=== PATIENT | male | born 1955 | race Caucasian/White ===

== ENCOUNTER 2016-09-06 05:18 | Observation (INO) | payer OTHER ==
[2016-09-06] VITALS (7 sets, daily range): BP systolic 115–168; BP diastolic 53–83; PULSE 71–82; RESP 16–20; TEMP 98–98.1; O2SAT 92–99
[~2016-09-06] VITALS: Ht 175.3 cm; Wt 127.0 kg
[2016-09-06] MEDS ORDERED: SODIUM CHLORIDE 0.9% FLUSH 5 ML FLUSH IVF PRN (06:00)
[2016-09-06] MEDS ORDERED: NITROGLYCERIN 0.4 MG SL 25 TABS/BTL SL ONE (06:00)
[2016-09-06] MEDS ORDERED: ASPIRIN 81 MG CHEW TAB CHEW ONE (06:15)
[2016-09-06] MEDS ORDERED: LISI-519 PO ×2 (06:31→14:59)
[2016-09-06] MEDS ORDERED: HYDR-4107 PO (06:31)
--- NOTE | 2016-09-06 06:32 | PD ---
HPI Chief Complaint: Numbness/Tingling Time Seen by Provider: 06:00 Travel History International Travel<30 days: No Contact w/Intl Traveler<30days: No Traveled to known affect area: No History of Present Illness HPI 61-year-old white male with a history of hypertension presents emergency department for evaluation of indigestion and tingling sensation in his left arm after an exertional episode this evening. The patient states that he knows that he is overweight and has low exercise tolerance. He states that he was out walking his dog this evening sometime around 10:30 PM. He states that they were walking quite vigorously when he started developing indigestion sensation in his chest. He states that he felt as if he needed to burp. He also states that he had tingling sensation in his left upper arm down into his lower arm. He states that he had no associated nausea or vomiting but he did feel short of breath with activity. The shortness of breath improved with rest. He states that the indigestion sensation and feeling of needing to burp also slowly improved but he still had remaining tingling and altered sensation in his left upper arm. He states that he just didn't feel right. Over last several hours the sensation has started to improve but he states that he just doesn't feel right in his left upper arm and points to his biceps region. He states that he still does occasionally get some feeling of indigestion and wanting to burp. He denies any history of heart disease in the past. He denies any stress tests or cardiac catheterization in the past. The patient denies any recent illness or injuries. He states that he did take a baby aspirin as soon as he got home because he was concerned that this could be a cardiac event. He presents for evaluation. The patient states that the symptoms were moderate in intensity but mild now. He has had some improvement of symptoms with rest. These are exacerbated by activity. Patient denies diabetes and hypercholesterolemia. PFSH Past Medical History Narrative Medical Hypertension Tetanus Vaccination: Unknown Past Surgical History Narrative Surgical Varicose vein stripping Social History Alcohol Use: Yes Tobacco Use: Yes Allergies-Medications (Allergen,Severity, Reaction): Coded Allergies: Penicillin (Verified Allergy, Unknown, 09/06/16) Sulfa (Verified Allergy, Unknown, 09/06/16) Review of Systems Except as stated in HPI: all other systems reviewed are Neg General / Constitutional: No: Fever, Chills Eyes: No: Diploplia, Blurred Vision HENT: No: Headaches, Vertigo Cardiovascular: Positive: Chest Pain or Discomfort, Tachycardia, No: Palpitations Respiratory: Positive: Shortness of Breath, Other (dyspnea with exertion), No : Cough, Wheezing Gastrointestinal: Positive: Indigestion, No: Nausea, Vomiting Genitourinary: No: Dysuria, Hematuria Musculoskeletal: No: Myalgias, Arthralgias Skin: No Rash, No Itching Neurologic: Positive: Paresthesia (left arm), No: Weakness, Syncope Psychiatric: No: Anxiety, Depression Endocrine: No: Heat Intolerance, Cold Intolerance Hematologic/Lymphatic: No: Easy Bruising Physical Exam Narrative GENERAL: Well-developed morbidly obese white male in no acute distress SKIN: Warm and dry. HEAD: Atraumatic. Normocephalic. EYES: Pupils equal and round. No scleral icterus. No injection or drainage. ENT: No nasal bleeding or discharge. Mucous membranes pink and moist. NECK: Trachea midline. No JVD. CARDIOVASCULAR: Regular rate and rhythm. 1-2 murmur appreciated right aortic area. RESPIRATORY: No accessory muscle use. Clear to auscultation. Breath sounds equal bilaterally. GASTROINTESTINAL: Abdomen soft, non-tender, nondistended. Hepatic and splenic margins not palpable. MUSCULOSKELETAL: No obvious deformities. No clubbing. No cyanosis. No edema. Venous stasis changes NEUROLOGICAL: Awake and alert. No obvious cranial nerve deficits. Motor grossly within normal limits. Normal speech. PSYCHIATRIC: Appropriate mood and affect; insight and judgment normal. Data Data Last Documented VS Vital Signs Date Time Temp Pulse Resp B/P Pulse Ox O2 Delivery O2 Flow Rate FiO2 09/06/16 05:26 98.0 71 16 149/77 96 Orders Electrocardiogram (09/06/16 05:53) Basic Metabolic Panel (Bmp) (09/06/16 05:53) Ckmb (Isoenzyme) Profile (09/06/16 05:53) Complete Blood Count With Diff (09/06/16 05:53) Magnesium (Mg) (09/06/16 05:53) Prothrombin Time / Inr (Pt) (09/06/16 05:53) Act Partial Throm Time (Ptt) (09/06/16 05:53) Troponin I (09/06/16 05:53) Chest, Single Ap (09/06/16 05:53) Ecg Monitoring (09/06/16 05:53) Bilateral Bp Monitoring (09/06/16 05:53) Iv Access Insert/Monitor (09/06/16 05:53) Oximetry (09/06/16 05:53) Oxygen Administration (09/06/16 05:53) Sodium Chloride 0.9% Flush (Ns Flush) (09/06/16 06:00) Nitroglycerin Sl (Nitrostat Sl) (09/06/16 06:00) Aspirin Chew (Aspirin Chew) (09/06/16 06:15) MDM Medical Decision Making Medical Screen Exam Complete: Yes Emergency Medical Condition: Yes Medical Record Reviewed: Yes Interpretation(s) EKG shows NSR, no ST elevation or depression, and no arrhythmias. No significant T-wave inversions. Differential Diagnosis MDM: High Differential diagnoses: Coronary artery disease, STEMI, angina, pneumothorax, pericarditis, endocarditis, hyperthyroidism, arrhythmia, pulmonary embolus, pneumonia, electrolyte abnormality Narrative Course IV access is obtained. Routine laboratory tests sent for analysis. Patient took 1 baby aspirin before coming in today. He is given 2 additional baby aspirin, O2, nitroglycerin sublingual. Patient's symptoms concerning for angina. Rule out ND Condition: Stable Osman Barillas Sep 06, 2016 06:32
--- NOTE | 2016-09-06 06:33 | RADRPT ---
EXAM DATE/TIME: 09/06/2016 06:06 [facility] COMPARISON: No previous studies available for comparison. INDICATIONS : Chest pain. Numbness in left arm. MEDICAL HISTORY : None. SURGICAL HISTORY : None. ENCOUNTER: Initial ACUITY: 1 day PAIN SCORE: 0/10 LOCATION: Bilateral chest FINDINGS: A single view of the chest demonstrates the lungs to be symmetrically aerated without evidence of mas s, infiltrate or effusion. The cardiomediastinal contours are unremarkable. Osseous structures are intact. CONCLUSION: No acute cardiopulmonary process. Odilon Jovel MD on September 06, 2016 at 6:31 Board Certified Radiologist. This report was verified electronically.
[2016-09-06 06:36] LABS: AUTOMATED NEUTROPHIL # 4.5 TH/MM3 (1.8-7.7); BASOPHIL % 0.3 % (0.0-2.0); EOSINOPHIL # 0.1 TH/MM3 (0-0.4); HEMATOCRIT 50.7 % (39.0-51.0); HEMO FLAGS DIFF FINAL; LYMPH % 17.3 % (9.0-44.0); LYMPHOCYTE # 1.1 TH/MM3 (1.0-4.8); MEAN CORPUSCULAR HEMOGLOBIN 33.4 PG (27.0-34.0); MEAN CORPUSCULAR HGB CONC 34.4 % (32.0-36.0); MONO % 7.8 % (0.0-8.0); NEUT % 73.6 % (16.0-70.0); PLATELET COUNT 106 TH/MM3 (150-450); RED BLOOD COUNT 5.22 MIL/MM3 (4.50-5.90); RED CELL DISTRIBUTION WIDTH 14.1 % (11.6-17.2); WHITE BLOOD COUNT 6.1 TH/MM3 (4.0-11.0)
[2016-09-06 06:56] LABS: APTT (PATIENT) 32.2 SEC (24.3-30.1); INTERNATIONAL NORMALIZED RATIO 1.1 RATIO; PROTHROMBIN TIME - PATIENT 12.3 SEC (9.8-11.6)
[2016-09-06 07:07] LABS: ANION GAP 8 MEQ/L (5-15); BICARBONATE 25.8 MEQ/L (21.0-32.0); BLOOD UREA NITROGEN 17 MG/DL (7-18); CHLORIDE 106 MEQ/L (98-107); CREATINE KINASE 216 U/L (39-308); GLOMERULAR FILTRATION RATE 86 ML/MIN (>89); MAGNESIUM 2.1 MG/DL (1.5-2.5); SODIUM (NA) 140 MEQ/L (136-145)
[2016-09-06 07:21] LABS: POTASSIUM 4.6 MEQ/L (3.5-5.1)
[2016-09-06 07:33] LABS: CKMB 3.6 NG/ML (0.5-3.6)
--- NOTE | 2016-09-06 07:53 | PD ---
Physical Exam Time Seen by Provider: 07:51 Narrative Please refer to previous providers documentation for details surrounding the patient's current visit. Data Data Last Documented VS Vital Signs Date Time Temp Pulse Resp B/P Pulse Ox O2 Delivery O2 Flow Rate FiO2 09/06/16 06:10 92 Nasal Cannula 2 09/06/16 05:26 98.0 71 16 149/77 Orders Electrocardiogram (09/06/16 05:53) Basic Metabolic Panel (Bmp) (09/06/16 05:53) Ckmb (Isoenzyme) Profile (09/06/16 05:53) Complete Blood Count With Diff (09/06/16 05:53) Magnesium (Mg) (09/06/16 05:53) Prothrombin Time / Inr (Pt) (09/06/16 05:53) Act Partial Throm Time (Ptt) (09/06/16 05:53) Troponin I (09/06/16 05:53) Chest, Single Ap (09/06/16 05:53) Ecg Monitoring (09/06/16 05:53) Bilateral Bp Monitoring (09/06/16 05:53) Iv Access Insert/Monitor (09/06/16 05:53) Oximetry (09/06/16 05:53) Oxygen Administration (09/06/16 05:53) Sodium Chloride 0.9% Flush (Ns Flush) (09/06/16 06:00) Nitroglycerin Sl (Nitrostat Sl) (09/06/16 06:00) Aspirin Chew (Aspirin Chew) (09/06/16 06:15) CKMB (09/06/16 06:10) CKMB% (09/06/16 06:10) Diet Heart Healthy (09/06/16 Breakfast) Admit Order (Ed Use Only) (09/06/16 07:26) Labs Laboratory Tests Test 09/06/16 06:10 White Blood Count 6.1 TH/MM3 Red Blood Count 5.22 MIL/MM3 Hemoglobin 17.4 GM/DL Hematocrit 50.7 % Mean Corpuscular Volume 97.0 FL Mean Corpuscular Hemoglobin 33.4 PG Mean Corpuscular Hemoglobin 34.4 % Concent Red Cell Distribution Width 14.1 % Platelet Count 106 TH/MM3 Mean Platelet Volume 9.1 FL Neutrophils (%) (Auto) 73.6 % Lymphocytes (%) (Auto) 17.3 % Monocytes (%) (Auto) 7.8 % Eosinophils (%) (Auto) 1.0 % Basophils (%) (Auto) 0.3 % Neutrophils # (Auto) 4.5 TH/MM3 Lymphocytes # (Auto) 1.1 TH/MM3 Monocytes # (Auto) 0.5 TH/MM3 Eosinophils # (Auto) 0.1 TH/MM3 Basophils # (Auto) 0.0 TH/MM3 CBC Comment DIFF FINAL Differential Comment Prothrombin Time 12.3 SEC Prothromb Time International 1.1 RATIO Ratio Activated Partial 32.2 SEC Thromboplast Time Sodium Level 140 MEQ/L Potassium Level 4.6 MEQ/L Chloride Level 106 MEQ/L Carbon Dioxide Level 25.8 MEQ/L Anion Gap 8 MEQ/L Blood Urea Nitrogen 17 MG/DL Creatinine 0.90 MG/DL Estimat Glomerular Filtration 86 ML/MIN Rate Random Glucose 141 MG/DL Calcium Level 9.1 MG/DL Magnesium Level 2.1 MG/DL Total Creatine Kinase 216 U/L Creatine Kinase MB 3.6 NG/ML Troponin I LESS THAN 0.02 NG/ML [facility] Medical Record Reviewed: Yes Supervised Visit with KALEB: No Narrative Course Patient was signed out to me with lab work pending. CBC and BMP are without acute concern. Troponin is less than 0.02. Chest x-ray is with no acute cardiopulmonary process. Patient does appear well and without distress. His vital signs have remained stable. Patient will be admitted to the chest pain center for further evaluation of possible cardiac etiology of his pain. Diagnosis Primary Impression: Chest pain Qualified Code: R07.9 - Chest pain, unspecified type Admitting Information Admitting Physician Requests: Observation Condition: Stable Jacqueline Manuel Sep 06, 2016 07:53
--- NOTE | 2016-09-06 10:27 | HHI.HP ---
[facility] Primary Care Physician Kumar Brumfield MD Chief Complaint Neck and left arm discomfort History of Present Illness This is a 61-year-old male that presents to the ED with a complaint of developing a discomfort radiating from the left side his neck down his left arm. It began yesterday while walking his dog. He initially a little short of breath. The discomfort persisted throughout the night and even woke him up with an intense pain. He found nothing really to worsen the discomfort or improve the discomfort. Denies nausea or diaphoresis. He estimates his symptoms last about 12 hours. Denies chest pain. Denies history of CAD. Cannot recall last stress testing. Denies recent illness. Review of Systems General: Patient denies fevers, chills recent, and recent travel HEENT: Patient denies headache, sore throat, difficulty swallowing. Cardiovascular: Denies chest discomfort. Denies sensation of heart beating rapidly or irregularly. Denies diaphoresis. No syncope. Respiratory: Denies shortness of breath or inspirational chest discomfort. Denies coughing wheezing or hemoptysis. GI: Patient denies nausea, vomiting, diarrhea, abdominal pain, bloody stools. Musculoskeletal: Complains of left-sided neck discomfort that radiates down his left arm. Patient denies joint pain or edema. Denies calf pain or edema. Neurovascular: Patient denies numbness, tingling, weakness in extremities. Denies headache. Endocrine: Denies polyuria and polydipsia. Hematologic: Denies easy bruising. Skin: Denies rash or itching. Past Family Social History Allergies: Coded Allergies: Penicillin (Verified Allergy, Unknown, 09/06/16) Sulfa (Verified Allergy, Unknown, 09/06/16) Past Medical History Hypertension,tobacco abuse, chronic bilateral hip and back pain. Denies hyperlipidemia, diabetes, and known CAD. Past Surgical History Noncontributory Reported Medications Reported Meds & Active Scripts Active Reported Hydrocodone-Acetaminophen 5-300 Mg Tab Unknown Dose PO Q4H PRN Lisinopril 5 Mg Tab Unknown Dose PO DAILY Active Ordered Medications Current Medications Medications (Trade) Dose Ordered Sig/Arsalan Route Start Time Stop Time Status Last Admin (NS Flush) 2 ml UNSCH PRN IVF 09/06/16 06:00 Family History His father had onset CAD in his late 50s. He has had bypass. Social History Patient smokes about three-quarter pack of cigarettes daily for approximately 35 years. Has occasional alcohol. Denies illicit drugs. Physical Exam Vital Signs Vital Signs Date Time Temp Pulse Resp B/P Pulse Ox O2 Delivery O2 Flow Rate FiO2 09/06/16 08:43 72 16 126/62 98 Room Air 09/06/16 07:00 Room Air 09/06/16 07:00 98.0 82 16 132/78 99 Room Air 09/06/16 06:10 92 Nasal Cannula 2 09/06/16 05:26 98.0 71 16 149/77 96 Physical Exam GENERAL: This is a well-nourished, well-developed patient, in no apparent distress. Patient speaks in clear complete sentences. Patient is pleasant. Patient is obese at 127 kg. HEENT: Head is atraumatic and normocephalic. Neck is supple without lymphadenopathy and trachea is midline. No JVD or carotid bruits. CARDIOVASCULAR: Regular rate and rhythm without murmurs, gallops, or rubs. RESPIRATORY: Clear to auscultation. Breath sounds equal bilaterally. No wheezes , rales, or rhonchi. Chest wall is nontender. No use of accessory muscles. GASTROINTESTINAL: Abdomen is nontender, nondistended. Abdomen soft. No obvious pulsatile mass or bruit. No CVA tenderness. Strong femoral pulses bilaterally. Normal bowel sounds in all quadrants. MUSCULOSKELETAL: Patient is moving upper and lower extremities freely. No calf tenderness or edema, no Homans sign. Strong pulses in upper and lower extremities. No discomfort with range of motion of his neck. The spinous processes point tenderness on palpating cervical, thoracic, lumbar spine. Strong cable coverer strength bilaterally. NEUROLOGICAL: Patient is alert and oriented. Cranial nerves 2-12 are grossly intact. No focal deficits and speech is clear. Strong cable coverer strength bilaterally. SKIN: No rash and turgor is normal. Laboratory Laboratory Tests Test 09/06/16 06:10 White Blood Count 6.1 Red Blood Count 5.22 Hemoglobin 17.4 Hematocrit 50.7 Mean Corpuscular Volume 97.0 Mean Corpuscular Hemoglobin 33.4 Mean Corpuscular Hemoglobin 34.4 Concent Red Cell Distribution Width 14.1 Platelet Count 106 Mean Platelet Volume 9.1 Neutrophils (%) (Auto) 73.6 Lymphocytes (%) (Auto) 17.3 Monocytes (%) (Auto) 7.8 Eosinophils (%) (Auto) 1.0 Basophils (%) (Auto) 0.3 Neutrophils # (Auto) 4.5 Lymphocytes # (Auto) 1.1 Monocytes # (Auto) 0.5 Eosinophils # (Auto) 0.1 Basophils # (Auto) 0.0 CBC Comment DIFF FINAL Differential Comment Prothrombin Time 12.3 Prothromb Time International 1.1 Ratio Activated Partial 32.2 Thromboplast Time Sodium Level 140 Potassium Level 4.6 Chloride Level 106 Carbon Dioxide Level 25.8 Anion Gap 8 Blood Urea Nitrogen 17 Creatinine 0.90 Estimat Glomerular Filtration 86 Rate Random Glucose 141 Calcium Level 9.1 Magnesium Level 2.1 Total Creatine Kinase 216 Creatine Kinase MB 3.6 Troponin I LESS THAN 0.02 Result Diagram: 09/06/16 0610 09/06/16 0610 Imaging Last 48 hours Impressions Chest X-Ray 09/06/16 0553 Signed Impressions: Service Date/Time: Tuesday, September 06, 2016 06:06 - CONCLUSION: No acute cardiopulmonary process. Odilon Jovel MD Course Initial EKG is sinus rhythm without significant ST segment depressions or elevations. Assessment and Plan Assessment and Plan * Cervical radiculopathy: Patient's first troponin is normal and EKG has no significant ST segment depression or elevation. He was seen by Dr. Demario Giordano of cardiology and the chest pain center. Symptoms appear to be more of a radiculopathy however he has risks factors for CAD and was admitted to the chest pain center to rule out for atypical chest pain. He will of cervical spine x-ray. He will proceed with a Lexiscan. He will be discharged home with instructions follow-up physician if his stress test were to be nonischemic. * Hypertension: Continue her medication. * Tobacco abuse: Patient has been counseled on the importance of smoking cessation. * Obesity: Patient has been counseled for some diet, exercise, and weight loss. Antwon Killian Sep 06, 2016 10:27
--- NOTE | 2016-09-06 10:59 | RADRPT ---
EXAM DATE/TIME: 09/06/2016 09:56 [facility] COMPARISON: No previous studies available for comparison. INDICATIONS : Left arm and neck pain. MEDICAL HISTORY : None. SURGICAL HISTORY : None. ENCOUNTER: Initial ACUITY: 2 days PAIN SCORE: 1/10 LOCATION: Left Neck/arm. FINDINGS: No fracture or subluxation demonstrated of the cervical spine. Vertebral bodies have normal height. P revertebral soft tissues are within normal limits. There is mild disc space narrowing with anterior greater than posterior osseous ridging at C3/C4. The re is moderate disc space narrowing with mild to moderate uncovertebral and facet osteoarthritis at C 6/C7. Mild uncovertebral and facet osteoarthritis seen at the other levels. CONCLUSION: 1. No fracture or subluxation of the cervical spine. 2. Degenerative changes as above, mainly C6-C7 Daryl Christianson MD on September 06, 2016 at 10:56 Board Certified Radiologist. This report was verified electronically.
[2016-09-06 11:29] LABS: CREATINE KINASE 169 U/L (39-308)
[2016-09-06 11:41] LABS: CKMB 2.9 NG/ML (0.5-3.6)
--- NOTE | 2016-09-06 12:26 | EKG ---
Date Performed: 09/06/2016 Time Performed: 06:10:39 PTAGE: 61 years EKG: Sinus rhythm NONSPECIFIC T-WAVE ABNORMALITY BORDERLINE ECG NO PREVIOUS TRACING DOCTOR: Demario Giordano Interpretating Date/Time 09/06/2016 12:24:51
--- NOTE | 2016-09-06 12:27 | EKG ---
Date Performed: 09/06/2016 Time Performed: 09:06:45 PTAGE: 61 years EKG: Sinus rhythm NONSPECIFIC T-WAVE ABNORMALITY BORDERLINE ECG PREVIOUS TRACING : 09/06/2016 06.10 Since previous tracing, minor T wave changes are present DOCTOR: Demario Giordano Interpretating Date/Time 09/11/2016 07:54:28
[2016-09-06] MEDS ORDERED: REGADENOSON INJ 0.4 MG/5 ML SYR ONE (13:32)
--- NOTE | 2016-09-06 14:44 | RADRPT ---
EXAM DATE/TIME: 09/06/2016 12:54 [facility] COMPARISON: No previous studies available for comparison. INDICATIONS : Substernal chest pain with tingling in left arm with dyspnea. Angina. DOSE: 35 mCi Tc99m Myoview at stress. 11 mCi Tc99m Myoview at rest. 0.4 mg Lexiscan STRESS SYMPTOMS: Shortness of breath. EJECTION FRACTION: 67% MEDICAL HISTORY : Hypertension. Smoker. SURGICAL HISTORY : None. ENCOUNTER: Initial ACUITY: 1 day PAIN SCALE: 5/10 LOCATION: Substernal chest TECHNIQUE: The patient underwent pharmacologic stress with infusion of prescribed dose. Continuous ECG tracing was monitored during stress. Gated SPECT imaging was performed after stress and conventional SPECT i maging was performed at rest. The examination was performed on a SPECT/CT scanner, both attenuation and non-corrected datasets were reviewed. FINDINGS: DISTRIBUTION: The maximum perfused segment at stress is in the lateral wall. PERFUSION STUDY: The pattern of perfusion at stress is within normal limits. GATED STUDY: There is intact wall motion and thickening without hypokinetic or dyskinetic segments. CONCLUSION: Negative. No stress-induced ischemia. Normal left ventricular wall motion. RISK CATEGORY: Low Daryl Christianson MD on September 06, 2016 at 14:43 Board Certified Radiologist. This report was verified electronically.
--- NOTE | 2016-09-06 15:01 | HHI.DCPOC ---
Discharge Care Plan Diagnosis: (1) Cervical radiculopathy (2) Hypertension (3) Obesity Goals to Promote Your Health * To prevent worsening of your condition and complications * To maintain your health at the optimal level Directions to Meet Your Goals Take your medications as prescribed Follow your dietary instruction Follow activity as directed Keep your appointments as scheduled Take your immunizations and boosters as scheduled If your symptoms worsen call your PCP, if no PCP go to Urgent Care Center or Emergency Room Smoking is Dangerous to Your Health. Avoid second hand smoke Call the 24-hour hour crisis hotline for domestic abuse at Antwon Killian Sep 06, 2016 15:01
--- NOTE | 2016-09-07 10:43 | EKG ---
Date Performed: 09/06/2016 Time Performed: 11:13:23 PTAGE: 61 years EKG: Sinus rhythm NONSPECIFIC T-WAVE ABNORMALITY BORDERLINE ECG PREVIOUS TRACING : 09/06/2016 09.06 Compared to prior tracing no significant change DOCTOR: Ryan Live Interpretating Date/Time 09/07/2016 10:42:15
--- NOTE | 2016-09-07 11:31 | TR ---
Date Performed: 09/06/2016 Time Performed: 13:38:53 DOCTOR: Kumar Buenrostro DRUG LIST: CLINICAL HISTORY: ANGINA REASON FOR TEST: Angina REASON FOR ENDING: OBSERVATION: CONCLUSION: Lexiscan stress test was performed under standard four minute protocol. Radionuclid e was injected one minute prior to ending the test. No electrocardiographic abormalities were present to suggest ischemia. Nuclear imaging and interpretation are pending. COMMENTS:
== END 2016-09-06 16:02 | disposition home or self-care (01) ==
LOC: NEPB 05:18 → NEDA 07:28 → NEPHCDU 15:02
PROVIDERS: ADMIT Internal Medicine Cardiovascular Disease; ATTEND Internal Medicine Cardiovascular Disease
DX: M54.12 Radiculopathy, cervical region (principal); I10 Essential (primary) hypertension; F17.210 Nicotine dependence, cigarettes, uncomplicated; E66.9 Obesity, unspecified; Z68.41 Body mass index [BMI] 40.0-44.9, adult; Z88.0 Allergy status to penicillin; Z88.2 Allergy status to sulfonamides; M25.552 Pain in left hip; M25.551 Pain in right hip; G89.29 Other chronic pain; M54.9 Dorsalgia, unspecified
CPT/HCPCS: 71010; 72040; 78452; 80048; 82550; 82552; 83735; 84484; 85025; 85610; 85730; 93005; 93017; 99285; A9502; G0378; J2785

== ENCOUNTER → 2017-10-25 | Outpatient (CLI) | payer OTHER ==
[~2017-10-25] VITALS: Ht 175.3 cm; Wt 113.5 kg
[~2017-10-25] MED LIST: CHLORHEXIDINE GLUCONATE 2 % 1 PACK (2 CLOTHS) TOPICAL PRN; FISH100020 PO; HYDR-3366 PO; INSU1INJ14 SQ; LACTATED RINGER'S 1000 ML IV PRN; LIDOCAINE HCL 1% PF 5 ML AMPULE ONE; LIDOCAINE HCL 2% JELLY 5 ML SYRINGE TOPICAL ONE; LISI-515 PO; MAGN500T2 PO; METF1000 PO; METOPROLOL TARTRATE 25 MG TAB PO PRN; MULTTAB67 PO; PIOG30TA4 PO; POVIDONE IODINE 5% (ANTISEPSIS KIT) 4 APPLICATIONS EACH NARE PRN; PROPARACAINE HCL 0.5% OPHT SOLN 15 ML BTL RIGHT EYE ONE; RED600TA PO; SODIUM CHLORID 0.9% 500 ML IV PRN; TOBRAMYCIN/DEXAMETHASONE OPTH OINT 3.5 GM TUBE ONE; VITA100021 SL; VITA250T3 PO
[2017-10-25] MEDS: FLURBIPROFEN 0.03% OPHT SOLN 2.5 ML BTL RIGHT EYE SCH ×4 (09:10→09:25)
[2017-10-25] MEDS: TROPICAMIDE 1% OPHT SOLN 15 ML BTL RIGHT EYE SCH ×4 (09:10→09:25)
[2017-10-25] MEDS: PHENYLEPHRINE HCL 10% OPTH SOLN 5 ML BTL RIGHT EYE SCH ×4 (09:10→09:25)
[2017-10-25] MEDS: CYCLOPENTOLATE HCL 1% OPHT SOLN 2 ML BTL RIGHT EYE SCH ×4 (09:10→09:25)
--- NOTE | 2017-10-25 10:54 | MP ---
cc: Km Santos MD DATE OF OPERATION: 10/25/2017 [facility] # [id number] PREOPERATIVE DIAGNOSIS: Visually significant cataract, right eye. POSTOPERATIVE DIAGNOSIS: Visually significant cataract, right eye. OPERATION: Phacoemulsification with posterior chamber lens implantation, right eye. SURGEON: Km Santos MD ANESTHESIA: Topical with MAC. COMPLICATIONS: None. PROCEDURE: After informed consent was obtained, the patient was brought into the operative suite and placed on appropriate monitors by the Anesthesia Service. The patient had been given dilating drops and topical lidocaine gel in the holding area. The patient's operative eye was then prepped and draped in the usual sterile fashion. A wire lid speculum was placed. Further 2% lidocaine was then dropped on the cornea prior to beginning the procedure. A paracentesis incision was made in the peripheral cornea with a 1 mm jhony keratome. The anterior chamber was filled with viscoelastic. The anterior chamber was then entered through a stepped, clear corneal incision using a sharp 3 mm jhony keratome. A circular tear capsulorrhexis was then made with a bent needle cystitome. Following hydrodissection of the lens nucleus with balance saline, phaco-emulsification of the nucleus was performed using a modified chopping technique. The remaining cortex was removed with irrigation/aspiration. The prior two procedures were both performed using the handpieces of the [employer] phaco unit. The capsular bag was then filled with viscoelastic. The intraocular lens was then injected into the capsular bag and positioned. The type of intraocular lens and its power can be found elsewhere in this chart. The remaining viscoelastic was then removed from the anterior chamber with the IA handpiece. The anterior chamber was reformed with balanced saline. The wound was then closed securely with stromal hydration. It was found to be watertight to an intraocular pressure of at least 30 mmHg by palpation. A small amount of balanced salt solution was then removed through the paracentesis site and the intraocular pressure at the end of the case was approximately 20 by palpation. All drapes were then removed. TobraDex ointment was then placed in the eye, which was closed beneath a semi-pressure patch dressing. The patient tolerated this procedure well and left the operating room awake and alert. The patient is to follow-up in my office in the morning. MD TICO Barbosa , 10:47 AM , 10:53 AM
[2017-10-25 11:22] VITALS: BP 118/68; PULSE 68; RESP 16; TEMP 98.2; O2SAT 98
== END ==
LOC: PHSDC 08:00
PROVIDERS: ATTEND Optometrist Occupational Vision
DX: H26.9 Unspecified cataract (principal); E11.9 Type 2 diabetes mellitus without complications; Z79.4 Long term (current) use of insulin
CPT/HCPCS: 00142; 66984; 82948; J7040; V2632